=== PATIENT | female | born 1960 | race Two or more races ===

== ENCOUNTER 2018-09-08 11:53 | Inpatient (IN) | payer OTHER ==
[~2018-09-08] VITALS: Ht 165.1 cm; Wt 77.1 kg
--- NOTE | 2018-09-08 18:00 | NUR ---
MS RN OPENING NOTES PATIENT IS ALERT AND ORIENTED X4. RECEIVED PATIENT IN STABLE CONDITION. IN NO APPARENT DISTRESS. BEDSIDE RAILS ARE UPX2. BED IS LOCKED AND LOWERED. CALL LIGHT IS WITHIN REACH. IV LINE IS INTACT AND PATENT. VITAL SIGNS ARE WNL. WILL CONTINUE TO MONITOR PATIENT.
[2018-09-08] MEDS ORDERED: BISA10SU8 RC (18:06)
[2018-09-08] MEDS ORDERED: AMIN30LI27 PO (18:06)
[2018-09-08] MEDS ORDERED: ATOR40TA PO (18:06)
[2018-09-08] MEDS ORDERED: ENOX40DI SQ (18:06)
[2018-09-08] MEDS ORDERED: ONDA4TAB5 PO (18:06)
[2018-09-08] MEDS ORDERED: ASPI-1169 PO (18:06)
[2018-09-08] MEDS ORDERED: INSU100V3 SQ (18:06)
[2018-09-08] MEDS ORDERED: AMLO10TA7 PO (18:06)
[2018-09-08] MEDS ORDERED: SUCR1ORA PO (18:06)
[2018-09-08] MEDS ORDERED: ZINC220C6 PO (18:06)
[2018-09-08] MEDS ORDERED: POLY17PO4 PO (18:06)
[2018-09-08] MEDS ORDERED: CLOP75TA15 PO (18:06)
[2018-09-08] MEDS ORDERED: BLOO-668 IN (18:06)
[2018-09-08] MEDS ORDERED: INSU100V7 SQ (18:06)
[2018-09-08] MEDS ORDERED: BUPR75TA8 PO (18:06)
[2018-09-08] MEDS ORDERED: LISI40TA4 PO (18:06)
[2018-09-08] MEDS ORDERED: HYDR-4076 PO (18:06)
[2018-09-08] MEDS ORDERED: CARV12.52 PO (18:06)
[2018-09-08] MEDS ORDERED: MULT-447 PO (18:06)
[2018-09-08] MEDS ORDERED: ASCO500T9 PO (18:06)
[2018-09-08] MEDS ORDERED: ACET-868 PO (18:06)
[2018-09-08] MEDS ORDERED: VORI200T4 PO (18:08)
[2018-09-08 18:30] VITALS: BP 132/97
--- NOTE | 2018-09-08 18:30 | NUR ---
NOTIFIED KELL REYNOSO DNP THAT PATIENT HAS ARRIVED TO THE UNIT. ACKNOWLEDGED AND AWAITING ADMISSION ORDERS.
--- NOTE | 2018-09-08 18:45 | NUR ---
MS RN CLOSING NOTES PATIENT IS IN STABLE CONDITION. IN NO APPARENT DISTRESS. BEDSIDE RAILS ARE UPX2. BED IS LOCKED AND LOWERED. CALL LIGHT IS WITHIN REACH. IV LINE IS INTACT AND PATENT. ALL NEEDS WERE MET. WILL ENDORSE CARE TO RESTRICTIVE PREPARATION OPERATOR NURSE FOR FADY.
--- NOTE | 2018-09-08 19:20 | NUR ---
MS/RN NOTES REMINDED KELL BERMUDEZ DNP REGARDING ADMITTING ORDERS.
--- NOTE | 2018-09-08 19:30 | NUR ---
MS/RN OPENING NOTES PT RECEIVED AWAKE, RESTING COMFORTABLY IN BED. HOB ELEVATED. GREENLANDIC SPEAKING, A/OX4. ON ROOM AIR, BREATHING EVEN AND UNLABORED. DENIES SOB AND PAIN AT THIS TIME. HEVER PICC PATENT AND INTACT. CORBIN IN PLACE AND DRAINING TO GRAVITY. AWAITING ADMITTING ORDERS. LEFT FOOT DRESSING WRAPPED WITH PRADIP BANDAGE C/D/I. PER PT, SHE STATES THAT HER FOOT WAS CLEANED OF OLD TISSUE AND NEW SKIN PLACED. UNABLE TO DETERMINE DONOR SITE. ALSO STATES THAT THE DRESSING HASNT BEEN CHANGED IN 15 DAYS. BED IN LOW/LOCKED POSITION WITH CALL LIGHT IN REACH, BILATERAL UPPER SIDE RAILS IN PLACE. WILL CONTINUE TO MONITOR
[2018-09-08 20:00] VITALS: BP 159/77
[2018-09-08 20:28] VITALS: BP 159/77
[2018-09-08] MEDS ORDERED: IV NS 0.9% 1,000 ML IV PRN (20:51)
[2018-09-08] MEDS ORDERED: Z GUARD REMEDY 2 OZ OINT TP PRN (21:00)
[2018-09-08] MEDS ORDERED: PIPERACILLIN /TAZOBACTAM 3.375 G in IV D5W 50 ML IV ONE (21:00)
[2018-09-08] MEDS ORDERED: DEXTROSE 50%-WATER 50 ML DISP.SYRIN IV PRN (21:00)
[2018-09-08] MEDS: INSULIN REGULAR, HUMAN 100 UNIT/ML 3 ML VIAL SQ PRN (21:23)
[2018-09-08] MEDS: BLOOD SUGAR DIAGNOSTIC 1 EACH STRIP IN SCH (21:23)
[2018-09-08] MEDS: ATORVASTATIN 40 MG TABLET PO SCH (22:14)
[2018-09-08] MEDS: MORPHINE SULFATE INJ 2 MG/ML DISP.SYRIN IV PRN (22:14)
[2018-09-08] MEDS: SUCRALFATE 1 G/10 ML UDC PO SCH (22:14)
[2018-09-08] MEDS: INSULIN GLARGINE, 100 UNIT/ML CARTRIDGE SQ SCH (22:22)
[2018-09-08] MEDS: ALBUTEROL FS 2.5 MG/0.5 ML VIAL.NEB NEB SCH (23:07)
[2018-09-08] MEDS: IPRATROPIUM NEB FS 0.5 MG/2.5 ML AMPUL.NEB NEB SCH (23:07)
--- NOTE | 2018-09-09 01:21 | NUR ---
MS/RN NOTES RANDI ALICIA NOTIFIED OF PT DESATURATING TO 64% POST ADMINISTRATION OF MORPHINE. HOB ELEVATED, PLACED ON NON REBREATHER SATTING 94%-95%. BEGINNING OF SHIFT PT WAS SATTING 95% ON ROOM AIR. WITH ORDERS FOR ABG AND UPGRADE TO TELE. RT MADE AWARE. PT AROUSABLE TO NAME. ALERTX3. ORDERS NOTED AND CARRIED OUT.
[2018-09-09 01:24] LABS: ABG BASE EXCESS -0.6 mmol/L; ABG OXYGEN SATURATION 94.4 % (92.0-98.5); ABG PCO2 43.7 mmHg (35.0-45.0); ABG PH 7.371 (7.350-7.450); ABG PO2 80.3 mmHg (75.0-100.0); COHb 0.3 % (0.5-1.5); MetHb 0.7 % (0.0-1.5); O2Hb 93.5 % (94.0-97.0); SITE, ABG Right Radial; VENT MODE, BG NONREBREATHER
--- NOTE | 2018-09-09 02:34 | NUR ---
MS/RN NOTES RANDI ALICIA AT BEDSIDE TO ASSESS PT AND REVIEW CHART
--- NOTE | 2018-09-09 02:50 | NUR ---
POST ABG RESULTS PATINT WAS LEFT ON NONREBREATHER DUE TO LOW PO2 OF 80. SPOKE TO RN AND MARAL BRYAN WAS NOTIFIED AND CHECKED ON THE PATIENT. MARAL BRYAN SUGGESTED LASIX AND SAID TO TITRATE WHEN LASIX IS DONE. RN IS NOTIFIED.
[2018-09-09] MEDS ORDERED: FUROSEMIDE 20 MG/2 ML VIAL IV SCH (03:00)
[2018-09-09 03:41] LABS: BASOPHILS % (AUTO) 0.6 % (0.0-2.0); EOSINOPHILS % (AUTO) 2.7 % (0.0-6.0); HEMATOCRIT 29 % (33-45); HEMOGLOBIN 9.4 g/dL (11.5-14.8); LYMPHOCYTES # (AUTO) 1.2 /CMM (0.8-4.8); LYMPHOCYTES % (AUTO) 19.6 % (20.0-44.0); MEAN CORPUSCULAR HGB CONC 33 g/dl (31.0-36.0); MEAN CORPUSCULAR VOLUME 86 fL (82-100); MONOCYTES # (AUTO) 0.4 /CMM (0.1-1.30); MONOCYTES % (AUTO) 6.7 % (2.0-12.0); NEUTROPHILS # (AUTO) 4.2 /CMM (1.8-8.9); NEUTROPHILS % (AUTO) 70.4 % (43.0-81.0); PLATELET COUNT (AUTO) 191 /CMM (150-450); RED BLOOD CELL COUNT(AUTO) 3.31 MIL/uL (4.0-5.2)
[2018-09-09 03:57] LABS: ALBUMIN 2.2 g/dL (3.4-5.0); BILIRUBIN,TOTAL 0.2 mg/dL (0.2-1.0); CALCIUM, SERUM 8.5 mg/dL (8.5-10.1); CREATININE 1.3 mg/dL (0.6-1.3); MAGNESIUM 2.1 mg/dL (1.8-2.4); PHOSPHORUS 4.1 mg/dL (2.5-4.9); POTASSIUM 4.3 mmol/L (3.5-5.1)
[2018-09-09 04:05] LABS: THYROID STIMULATING HORMONE 4.626 uIU/mL (0.358-3.74)
[2018-09-09 04:30] VITALS: BP 162/82
[2018-09-09] MEDS: SUCRALFATE 1 G/10 ML UDC PO SCH ×4 (06:44→21:33)
[2018-09-09] MEDS: BLOOD SUGAR DIAGNOSTIC 1 EACH STRIP IN SCH ×4 (06:44→21:33)
[2018-09-09 07:35] LABS: APPEARANCE,URINE CLEAR (CLEAR); BILIRUBIN,URINE NEGATIVE (NEGATIVE); BLOOD, URINE 2+ Ery/uL (NEGATIVE); COLOR,URINE YELLOW (YELLOW); KETONES,URINE NEGATIVE (NEGATIVE); LEUKOCYTE ESTERASE ,URINE 2+ (NEGATIVE); NITRITE, URINE NEGATIVE (NEGATIVE); PROTEIN,URINE 1+ mg/dl (NEGATIVE); UGLUCOSE NEGATIVE (NEGATIVE); UROBILINOGEN,URINE 0.2 EU/dL (0.2)
--- NOTE | 2018-09-09 07:40 | NUR ---
MS/RN CLOSING NOTES PT AWAKE, A./OX3. CZECH SPEAKING. ON 10L SIMPLE MASK SATTING 95%. UNABLE TO TOLERATED TITRATION DURING SHIFT. HOB ELEVATED FOR OPTIMAL LUNG EXPANSION. HEVER PICC LINE IN PLACE. IV DC'D BY COIL WINDERMARAL. CORBIN IN PLACE AND DRAINING TO GRAVITY. DRESSING TO LEFT FOOT C/D/I WITH PRADIP BANDAGE IN PLACE. AWAITING WOUND/PODIATRY CONSULT. KEPT PT COMFORTABLE. ALL NEEDS MET. BED REMAINS IN LOW/LOCKED POSITION WITH CALL LIGHT IN REACH. ENDORSED TO DAY SHIFT RN FADY.
--- NOTE | 2018-09-09 07:50 | NUR ---
HYDROELECTRIC PLANT MECHANICAL ENGINEER OPENING NOTES RECEIVED PATIENT IN STABLE CONDITION. IN NO APPARENT DISTRESS. BEDSIDE RAILS ARE UPX2. BED IS LOCKED AND LOWERED. CALL LIGHT IS WITHIN REACH. IV LINE IS INTACT AND PATENT. WILL CONTINUE TO MONITOR PATIENT.
[2018-09-09] MEDS: IPRATROPIUM NEB FS 0.5 MG/2.5 ML AMPUL.NEB NEB SCH ×4 (07:56→19:40)
[2018-09-09] MEDS: ALBUTEROL FS 2.5 MG/0.5 ML VIAL.NEB NEB SCH ×4 (07:56→19:40)
[2018-09-09 08:04] VITALS: BP 156/76
[2018-09-09] MEDS: POLYETHYLENE GLYCOL 3350 17 GM POWD.PACK PO SCH ×2 (08:22→17:03)
[2018-09-09] MEDS: hydrALAZINE HCL 25 MG TABLET PO SCH ×3 (08:23→17:04)
[2018-09-09] MEDS: ASPIRIN 81 MG TAB.CHEW PO SCH (08:23)
[2018-09-09] MEDS: CLOPIDOGREL BISULFATE 75 MG TABLET PO SCH (08:23)
[2018-09-09] MEDS: buPROPion 75 MG TABLET PO SCH ×2 (08:23→17:03)
[2018-09-09] MEDS: ZINC SULFATE 220 MG CAPSULE PO SCH (08:23)
[2018-09-09] MEDS: LISINOPRIL (20MG) 20 MG TABLET PO SCH (08:23)
[2018-09-09] MEDS: ASCORBIC ACID 500 MG TABLET PO SCH (08:24)
[2018-09-09] MEDS: AMLODIPINE BESYLATE 10 MG TABLET PO SCH (08:24)
[2018-09-09] MEDS: CARVEDILOL 12.5 MG TABLET PO SCH ×2 (08:24→17:04)
[2018-09-09] MEDS: ENOXAPARIN SODIUM 40 MG/0.4 ML DISP.SYRIN SQ SCH (08:28)
[2018-09-09] MEDS: PIPERACILLIN /TAZOBACTAM 3.375 G in IV D5W 100 ML IV SCH ×2 (08:34→17:01)
[2018-09-09 08:50] LABS: BACTERIA,URINE 1+ /HPF (None Seen); SQUAMOUS EPITHELIAL CELL,UR Few /HPF (None Seen); YEAST,URINE Moderate /HPF (None Seen)
[2018-09-09] MEDS: VORICONAZOLE 200 MG TABLET PO SCH ×2 (09:47→17:03)
--- NOTE | 2018-09-09 10:54 | NUR ---
WOUND CARE CONSULT: PT PRESENTS WITH LEFT FOOT SURGICAL WOUNDS (SKIN GRAFTS WITH LUIS TO FOOT AND HEEL), PRESENT ON ADMISSION. DEFER TO DPM (DR HERRERA) FOR FOOT. PT ABLE TO ASSIST WITH TURNING AND REPOSITIONING IN BED. BLANCHABLE REDNESS NOTED TO BUTTOCKS. EMERALD JAMES NOTED. WILL SEE PRN. CURRENT NOELLE SCORE IS 14. Addendum: 09/09/18 at 1101 by POLI LOU WNDNU Amended: Links added.
[2018-09-09 16:09] VITALS: BP 144/75
--- NOTE | 2018-09-09 18:46 | NUR ---
MS RN CLOSING NOTES PATIENT IS IN STABLE CONDITION. IN NO APPARENT DISTRESS. BEDSIDE RAILS ARE UPX2. BED IS LOCKED AND LOWERED. CALL LIGHT IS WITHIN REACH. IV LINE IS INTACT AND PATENT. ALL NEEDS WERE MET. WILL ENDORSE CARE TO SEALING MACHINE OPERATOR NURSE FOR FADY.
[2018-09-09 20:00] VITALS: BP 141/71
--- NOTE | 2018-09-09 20:08 | NUR ---
MS/RN OPENING NOTES PT RECEIVED AWAKE, SITTING UP IN BREATHING RECEIVING BREATHING TX. A/OX4. YORUBA SPEAKING. BREATHING EVEN AND UNLABORED. DENIES SOB AND PAIN. IV TO HEVER PATENT AND INTACT. CORBIN IN PLACE AND DRAINING TO GRAVITY. DRESSING TO LEFT FOOT C/D/I. LEFT FOOT NWB. REMINDED PT TO OFFLOAD LEFT HEEL. VERBALIZED UNDERSTANDING. BED IN LOW/LOCKED POSITION WITH CALL LIGHT IN REACH, BILATERAL UPPER SIDE RAILS IN PLACE WITH HOB ELEVATED. WILL CONTINUE TO MONITOR
--- NOTE | 2018-09-09 20:14 | NUR ---
KELL BERMUDEZ WITH ORDERS FOR [facility] TO DOSE
[2018-09-09] MEDS ORDERED: FEE PK DOSING 1 MIN EA MC ONE (20:16)
[2018-09-09] MEDS: ATORVASTATIN 40 MG TABLET PO SCH (21:33)
[2018-09-09] MEDS: VANCOMYCIN 1 GM in IV D5W 250 ML IV SCH (21:33)
[2018-09-09] MEDS: INSULIN REGULAR, HUMAN 100 UNIT/ML 3 ML VIAL SQ PRN (21:40)
[2018-09-09] MEDS: INSULIN GLARGINE, 100 UNIT/ML CARTRIDGE SQ SCH (21:41)
[2018-09-10] MEDS: LACTULOSE 10 G/15 ML UDC (PYXIS) PO PRN ×2 (00:36→21:01)
[2018-09-10] MEDS: ACETAMINOPHEN 325 MG TABLET PO PRN (00:36)
--- NOTE | 2018-09-10 00:50 | NUR ---
MS/RN NOTES PT C/O ABDOMINAL DISCOMFORT AND STATES SHE HASNT HAD BM IN 3 DAYS. ADMINISTERED PRN TYLENOL AND LACTULOSE. WILL MONITOR FOR EFFECTIVENESS.
[2018-09-10] MEDS: PIPERACILLIN /TAZOBACTAM 3.375 G in IV D5W 100 ML IV SCH ×3 (01:15→17:03)
[2018-09-10] MEDS: BLOOD SUGAR DIAGNOSTIC 1 EACH STRIP IN SCH ×4 (06:43→21:02)
[2018-09-10] MEDS: SUCRALFATE 1 G/10 ML UDC PO SCH ×4 (06:43→21:02)
[2018-09-10 06:46] LABS: BASOPHILS % (AUTO) 0.4 % (0.0-2.0); EOSINOPHILS % (AUTO) 2.9 % (0.0-6.0); HEMATOCRIT 28 % (33-45); HEMOGLOBIN 9.4 g/dL (11.5-14.8); LYMPHOCYTES # (AUTO) 1.2 /CMM (0.8-4.8); LYMPHOCYTES % (AUTO) 23.1 % (20.0-44.0); MEAN CORPUSCULAR HGB CONC 34 g/dl (31.0-36.0); MEAN CORPUSCULAR VOLUME 86 fL (82-100); MONOCYTES # (AUTO) 0.4 /CMM (0.1-1.30); MONOCYTES % (AUTO) 7.4 % (2.0-12.0); NEUTROPHILS # (AUTO) 3.4 /CMM (1.8-8.9); NEUTROPHILS % (AUTO) 66.2 % (43.0-81.0); PLATELET COUNT (AUTO) 191 /CMM (150-450); RED BLOOD CELL COUNT(AUTO) 3.25 MIL/uL (4.0-5.2); WHITE BLOOD COUNT (AUTO) 5.1 K/uL (4.3-11.0)
[2018-09-10 07:02] LABS: CALCIUM, SERUM 8.5 mg/dL (8.5-10.1); CREATININE 1.4 mg/dL (0.6-1.3); MAGNESIUM 2.1 mg/dL (1.8-2.4); PHOSPHORUS 4.1 mg/dL (2.5-4.9); POTASSIUM 4.2 mmol/L (3.5-5.1)
--- NOTE | 2018-09-10 07:11 | NUR ---
MS/RN CLOSING NOTES PT ASLEEP, OPENS EYES TO NAME. ON 3L O2 VIA NC, BREATHING EVEN AND UNLABORED. DENIES SOB AND PAIN AT THIS TIME. ABDOMINAL DISCOMFORT RESOLVED BUT STILL WITH NO BM POST ADMINISTRATION OF LACTULOSE. CORBIN IN PLACE AND DRAINING TO GRAVITY. DRESSING C/D/I. WITH ORDERS TO ELEVATED ON PILLOW. HEVER PICC PATENT AND INTACT. NO SIGNIFICANT CHANGES OVERNIGHT. ALL NEEDS MET. BED REMAINS IN LOW/LOCKED POSITION WITH CALL LIGHT IN REACH AND BILATERAL UPPER SIDE RAILS IN PLACE. HOB ELEVATED. NO SIGNIFICANT CHANGES OVERNIGHT. ALL NEEDS MET. WILL ENDORSE TO DAY SHIFT RN FADY.
--- NOTE | 2018-09-10 07:32 | NUR ---
MS RN OPENING NOTES PT RECEIVED AWAKE, ALERT AND ORIENTED X4. PORTUGUESE SPEAKING. BREATHING EVEN AND UNLABORED ON 02 NASAL CANNULA AT 3 LPM. DENIES SOB AND PAIN. HEVER PICC LINE PATENT AND INTACT. CORBIN IN PLACE AND DRAINING TO GRAVITY. DRESSING TO LEFT FOOT C/D/I. LEFT FOOT NWB. REMINDED PT TO OFFLOAD LEFT HEEL. VERBALIZED UNDERSTANDING. BED IN LOW/LOCKED POSITION WITH CALL LIGHT IN REACH, BILATERAL UPPER SIDE RAILS IN PLACE WITH HOB ELEVATED. WILL CONTINUE TO MONITOR
[2018-09-10] MEDS: IPRATROPIUM NEB FS 0.5 MG/2.5 ML AMPUL.NEB NEB SCH ×4 (07:48→19:31)
[2018-09-10] MEDS: ALBUTEROL FS 2.5 MG/0.5 ML VIAL.NEB NEB SCH ×4 (07:48→19:31)
[2018-09-10 08:00] VITALS: BP 149/75
[2018-09-10] MEDS: VANCOMYCIN 1 GM in IV D5W 250 ML IV SCH ×2 (08:39→20:30)
[2018-09-10] MEDS: ENOXAPARIN SODIUM 40 MG/0.4 ML DISP.SYRIN SQ SCH (08:47)
[2018-09-10] MEDS: VORICONAZOLE 200 MG TABLET PO SCH ×2 (08:49→17:08)
[2018-09-10] MEDS: buPROPion 75 MG TABLET PO SCH ×2 (08:49→17:06)
[2018-09-10] MEDS: POLYETHYLENE GLYCOL 3350 17 GM POWD.PACK PO SCH ×2 (08:50→17:08)
[2018-09-10] MEDS: ASCORBIC ACID 500 MG TABLET PO SCH (08:50)
[2018-09-10] MEDS: ZINC SULFATE 220 MG CAPSULE PO SCH (08:50)
[2018-09-10] MEDS: ASPIRIN 81 MG TAB.CHEW PO SCH (08:50)
[2018-09-10] MEDS: CLOPIDOGREL BISULFATE 75 MG TABLET PO SCH (08:50)
[2018-09-10] MEDS: hydrALAZINE HCL 25 MG TABLET PO SCH ×3 (08:51→17:07)
[2018-09-10] MEDS: CARVEDILOL 12.5 MG TABLET PO SCH ×2 (08:51→17:07)
[2018-09-10] MEDS: AMLODIPINE BESYLATE 10 MG TABLET PO SCH (08:52)
[2018-09-10] MEDS: LISINOPRIL (20MG) 20 MG TABLET PO SCH (08:52)
[2018-09-10] MEDS: INSULIN REGULAR, HUMAN 100 UNIT/ML 3 ML VIAL SQ PRN ×3 (12:14→21:08)
[2018-09-10 16:00] VITALS: BP 134/65
[2018-09-10] MEDS: LACTOBACILLUS RHAMNOSUS GG 1 EACH CAP.SPRINK PO SCH (17:06)
--- NOTE | 2018-09-10 18:47 | NUR ---
MS RN CLOSING NOTES PT IN BED RESTING AT MODERATE HIGH BACKREST POSITION. A/O X4. SERBIAN SPEAKING. ON 02 VIA N/C @ 3LPM, BREATHING EVEN AND UNLABORED. DRESSING TO LEFT FOOT C/D/I. LEFT FOOT NWB. REMINDED PT TO OFFLOAD LEFT HEEL. VERBALIZED UNDERSTANDING. HEVER PICC LINE PATENT AND INTACT, FLUSHES WELL. CORBIN IN PLACE, PATENT AND DRAINING TO GRAVITY. ALL NEEDS AND CARE PROVIDED WELL. KEPT BED IN LOW/LOCKED POSITION WITH CALL LIGHT IN REACH. BILATERAL UPPER SIDE RAILS IN PLACE. WILL ENDORSE TO MATERNITY FLOOR SUPERVISOR NURSE FOR FADY.
--- NOTE | 2018-09-10 19:10 | NUR ---
MS RN RECEIVE PT IN BED. A/O X 3. RESPIRATIONS EVEN AND UNLABORED, NO SOB NOTED, NO DISTRESS, SAFETY MEASURES IN PLACE. WILL CONTINUE TO MONITOR.
[2018-09-10 20:00] VITALS: BP 133/61
--- NOTE | 2018-09-10 20:31 | NUR ---
HELD [facility]AN DONPB AT 2100 PER PHARMACY .[facility] LEV[facility] TROUGH AT 27 [facility]
[2018-09-10] MEDS: ATORVASTATIN 40 MG TABLET PO SCH (21:01)
[2018-09-10] MEDS: INSULIN GLARGINE, 100 UNIT/ML CARTRIDGE SQ SCH (21:03)
[2018-09-11] MEDS: PIPERACILLIN /TAZOBACTAM 3.375 G in IV D5W 100 ML IV SCH ×3 (00:40→16:58)
[2018-09-11] MEDS: BLOOD SUGAR DIAGNOSTIC 1 EACH STRIP IN SCH ×4 (05:43→21:53)
[2018-09-11] MEDS: INSULIN REGULAR, HUMAN 100 UNIT/ML 3 ML VIAL SQ PRN ×4 (05:44→22:11)
--- NOTE | 2018-09-11 06:14 | NUR ---
MS RN ASLEEP AND EASILY AWAKEN, RESPIRATIONS EVEN AND UNLABORED, GOOD SKIN CARE. NO COMPLAIN OF PAIN. AM CARE PROVIDED. NEEDS ATTENDED AND ANTICIPATED. NURSING CARE RENDERED. KEPT CLEAN AND DRY, COMFORTABLE. SAFETY MEASURES AT ALL TIMES. ENDORSE TO NEXT SHIFT.
[2018-09-11 07:17] LABS: BASOPHILS % (AUTO) 0.5 % (0.0-2.0); EOSINOPHILS % (AUTO) 3.1 % (0.0-6.0); HEMATOCRIT 28 % (33-45); HEMOGLOBIN 9.5 g/dL (11.5-14.8); LYMPHOCYTES # (AUTO) 1.1 /CMM (0.8-4.8); LYMPHOCYTES % (AUTO) 22.2 % (20.0-44.0); MEAN CORPUSCULAR HGB CONC 34 g/dl (31.0-36.0); MEAN CORPUSCULAR VOLUME 86 fL (82-100); MONOCYTES # (AUTO) 0.4 /CMM (0.1-1.30); MONOCYTES % (AUTO) 7.6 % (2.0-12.0); NEUTROPHILS # (AUTO) 3.2 /CMM (1.8-8.9); NEUTROPHILS % (AUTO) 66.6 % (43.0-81.0); PLATELET COUNT (AUTO) 196 /CMM (150-450); RED BLOOD CELL COUNT(AUTO) 3.25 MIL/uL (4.0-5.2); WHITE BLOOD COUNT (AUTO) 4.8 K/uL (4.3-11.0)
[2018-09-11 07:33] LABS: CALCIUM, SERUM 8.4 mg/dL (8.5-10.1); CREATININE 1.4 mg/dL (0.6-1.3); MAGNESIUM 2.2 mg/dL (1.8-2.4); PHOSPHORUS 4.6 mg/dL (2.5-4.9); POTASSIUM 4.2 mmol/L (3.5-5.1)
[2018-09-11 08:00] VITALS: BP 150/71
[2018-09-11] MEDS: IPRATROPIUM NEB FS 0.5 MG/2.5 ML AMPUL.NEB NEB SCH ×4 (08:01→18:50)
[2018-09-11] MEDS: ALBUTEROL FS 2.5 MG/0.5 ML VIAL.NEB NEB SCH ×4 (08:01→18:50)
[2018-09-11] MEDS: SUCRALFATE 1 G/10 ML UDC PO SCH ×4 (08:56→21:54)
[2018-09-11] MEDS: ZINC SULFATE 220 MG CAPSULE PO SCH (08:56)
[2018-09-11] MEDS: POLYETHYLENE GLYCOL 3350 17 GM POWD.PACK PO SCH ×2 (08:56→16:57)
[2018-09-11] MEDS: VORICONAZOLE 200 MG TABLET PO SCH ×2 (08:57→16:56)
[2018-09-11] MEDS: AMLODIPINE BESYLATE 10 MG TABLET PO SCH (08:57)
[2018-09-11] MEDS: hydrALAZINE HCL 25 MG TABLET PO SCH ×3 (08:57→16:58)
[2018-09-11] MEDS: LISINOPRIL (20MG) 20 MG TABLET PO SCH (08:57)
[2018-09-11] MEDS: CARVEDILOL 12.5 MG TABLET PO SCH ×2 (08:58→16:57)
[2018-09-11] MEDS: CLOPIDOGREL BISULFATE 75 MG TABLET PO SCH (08:58)
[2018-09-11] MEDS: buPROPion 75 MG TABLET PO SCH ×2 (08:58→16:56)
[2018-09-11] MEDS: LACTOBACILLUS RHAMNOSUS GG 1 EACH CAP.SPRINK PO SCH ×2 (08:58→16:58)
[2018-09-11] MEDS: ASPIRIN 81 MG TAB.CHEW PO SCH (08:58)
[2018-09-11] MEDS: ASCORBIC ACID 500 MG TABLET PO SCH (08:58)
[2018-09-11] MEDS: ENOXAPARIN SODIUM 40 MG/0.4 ML DISP.SYRIN SQ SCH (08:59)
[2018-09-11] MEDS: DAKINS HALF STRENGTH (0.25%) 480 ML BOTTLE TOP SCH (09:14)
[2018-09-11] MEDS: VANCOMYCIN 1 GM in IV D5W 250 ML IV SCH (09:14)
--- NOTE | 2018-09-11 09:47 | NUR ---
MS RN OPENING NOTE RECEIVED PATIENT IN BED. SLEEPING, EASILY AROUSED WITH VERBAL STIMULI, ORIENTED X4. ON 2L O2 VIA NC, TOLERATING WELL. IN NO APPARENT DISTRESS OR DISCOMFORT AT THIS TIME. RESPIRATIONS EVEN AND UNLABORED. DENIES PAIN AND SOB AT THIS TIME. PATIENT IS ABLE TO COMMUNICATE NEEDS, AMHARIC SPEAKING WITH MINIMAL ROMANIAN. CORBIN CATHETER IN PLACE, DRAINING CLEAR YELLOW URINE. RIGHT UPPER ARM PICC LINE, SL, PATENT AND INTACT. LEFT LOWER EXTREMITY ELEVATED ON A PILLOW. KEPT CLEAN AND COMFORTABLE. ALL NEEDS ATTENDED, SAFETY MEASURES IN PLACE, BED IN LOW LOCKED POSITION, SIDE RAILS UP X2, CALL LIGHT WITHIN EASY REACH. WILL CONTINUE TO MONITOR.
[2018-09-11 16:00] VITALS: BP 132/70
--- NOTE | 2018-09-11 17:51 | NUR ---
PATIENT REPORTED THAT SHE HAD NO BOWEL MOVEMENT THE PAST THREE DAYS. PATIENT RECEIVED SCHEDULED/ORDERED LAXATIVES FOR ROMY DAY. BOWEL SOUNDS ARE HYPERACTIVE. FLATULENCE PRESENT PER PATIENT'S REPORT. WILL CONTINUE TO MONITOR AT THIS TIME.
--- NOTE | 2018-09-11 18:15 | NUR ---
MS RN CLOSING NOTE PATIENT IN BED. ALERT ORIENTED X3-4. WITH OCCASIONAL CONFUSION AND FORGETFULNESS, ON 2L O2 VIA NC, TOLERATING WELL. IN NO APPARENT DISTRESS OR DISCOMFORT AT THIS TIME. RESPIRATIONS EVEN AND UNLABORED. DENIES PAIN AND SOB AT THIS TIME. PATIENT IS ABLE TO COMMUNICATE NEEDS, YORUBA SPEAKING WITH MINIMAL JAMAICAN. CORBIN CATHETER IN PLACE, DRAINING CLEAR YELLOW URINE. RIGHT UPPER ARM PICC LINE, SL, PATENT AND INTACT. BILATERAL LOWER EXTREMITIES ELEVATED ON A PILLOW. KEPT CLEAN AND COMFORTABLE. ALL NEEDS ATTENDED, ORDERS RENDERED. PATIENT IS INDEPENDENT WITH BED MOBILITY. SAFETY MEASURES IN PLACE, BED IN LOW LOCKED POSITION, SIDE RAILS UP X2, CALL LIGHT WITHIN EASY REACH. WILL ENDORSE TO PM NURSE FOR FADY.
--- NOTE | 2018-09-11 19:30 | NUR ---
RN MS OPENING NOTES RECEIVED PATIENT IN BED AWAKE, ALERT AND ORIENTED X3, VERBALLY RESPONSIVE, ABLE TO MAKE NEEDS KNOWN. BREATHING EVEN AND UNLABORED. ON 2LPM OXYGEN VIA NC. TOLERATING WELL WITH NO SOB NOTED. DENIES AND PAIN OR DISCOMFORT. NO FACIAL GRIMACING. PICC LINE ON RIGHT UPPER ARM INTACT AND PATENT. SKIN DRY AND WARM TO TOUCH. AFEBRILE. PATIENT NOTED WITH CORBIN CATH - INTACT AND DRAINING. ALL OTHER NEEDS ATTENDED TO. SAFETY MEASURES IN PLACE. CALL LIGHT WITHIN REACH. WILL CONTINUE TO MONITOR.
[2018-09-11 20:00] VITALS: BP 139/69
[2018-09-11] MEDS: LACTULOSE 10 G/15 ML UDC (PYXIS) PO PRN (21:21)
[2018-09-11] MEDS: ACETAMINOPHEN 325 MG TABLET PO PRN (21:21)
[2018-09-11] MEDS: ATORVASTATIN 40 MG TABLET PO SCH (21:54)
[2018-09-11] MEDS: INSULIN GLARGINE, 100 UNIT/ML CARTRIDGE SQ SCH (22:00)
[2018-09-11] MEDS ORDERED: NA PHOS,M-B/NA PHOS,DI-BA 1 EA ENEMA RC PRN ×3 (22:00→22:05)
[2018-09-12] MEDS: PIPERACILLIN /TAZOBACTAM 3.375 G in IV D5W 100 ML IV SCH ×3 (00:56→17:31)
[2018-09-12] MEDS: VANCOMYCIN 1 GM in IV D5W 250 ML IV SCH ×2 (04:01→21:10)
[2018-09-12 04:42] LABS: BASOPHILS % (AUTO) 0.3 % (0.0-2.0); HEMATOCRIT 28 % (33-45); HEMOGLOBIN 9.4 g/dL (11.5-14.8); LYMPHOCYTES # (AUTO) 0.9 /CMM (0.8-4.8); LYMPHOCYTES % (AUTO) 18.2 % (20.0-44.0); MEAN CORPUSCULAR HGB CONC 33 g/dl (31.0-36.0); MEAN CORPUSCULAR VOLUME 86 fL (82-100); MONOCYTES # (AUTO) 0.3 /CMM (0.1-1.30); MONOCYTES % (AUTO) 6.5 % (2.0-12.0); NEUTROPHILS # (AUTO) 3.7 /CMM (1.8-8.9); PLATELET COUNT (AUTO) 195 /CMM (150-450); RED BLOOD CELL COUNT(AUTO) 3.28 MIL/uL (4.0-5.2); WHITE BLOOD COUNT (AUTO) 5.1 K/uL (4.3-11.0)
[2018-09-12 04:54] LABS: CALCIUM, SERUM 8.6 mg/dL (8.5-10.1); CREATININE 1.8 mg/dL (0.6-1.3); MAGNESIUM 2.5 mg/dL (1.8-2.4); PHOSPHORUS 4.5 mg/dL (2.5-4.9); POTASSIUM 4.2 mmol/L (3.5-5.1)
[2018-09-12] MEDS: BLOOD SUGAR DIAGNOSTIC 1 EACH STRIP IN SCH ×4 (06:48→21:51)
[2018-09-12] MEDS: INSULIN REGULAR, HUMAN 100 UNIT/ML 3 ML VIAL SQ PRN ×4 (06:48→21:51)
[2018-09-12 06:49] VITALS: BP 148/80
--- NOTE | 2018-09-12 06:57 | NUR ---
RN MS CLOSING NOTES PATIENT RESTING IN BED. NO ACUTE CHANGES THROUGHOUT SHIFT. BREATHING EVEN AND UNLABORED. ON 2-3LPM OXYGEN VIA NC. TOLERATING WELL WITH NO SOB NOTED. DENIES AND PAIN OR DISCOMFORT. NO FACIAL GRIMACING. PICC LINE ON RIGHT UPPER ARM INTACT AND PATENT. SKIN DRY AND WARM TO TOUCH. AFEBRILE. PATIENT WITH CORBIN CATH - INTACT AND DRAINING. HAD 2 SMALL BOWELS SINCE ADMINISTRATION OF FLEET ENEMA. ANTICIPATING SURGERY THIS AM. CHECKLIST DONE. ALL OTHER NEEDS ATTENDED TO. SAFETY MEASURES IN PLACE. CALL LIGHT WITHIN REACH. WILL ENDORSE TO ONCOMING NURSE FOR FADY.
--- NOTE | 2018-09-12 07:00 | NUR ---
PATIENT IS NOT IN THE UNIT. CURRENTLY IN THE OR FOR A SURGERY.
--- NOTE | 2018-09-12 07:09 | NUR ---
RN MS NOTES PATIENT LEFT FOR SURGERY IN STABLE CONDITION.
[2018-09-12] MEDS ORDERED: BUPIVACAINE MPF 0.5% W/EPI INJ 30 ML VIAL ONE (07:19)
[2018-09-12] MEDS ORDERED: BUPIVACAINE 0.5 % PF 150 MG/30 ML VIAL ONE (07:19)
[2018-09-12] MEDS ORDERED: ANESTHESIA TRAY IN PYXIS 1 EA TRAY MC ONE (07:19)
[2018-09-12] MEDS ORDERED: DESFLURANE 240 ML BOTTLE IH ONE (07:19)
[2018-09-12] MEDS ORDERED: LIDOCAINE HCL/PF 1% 30 ML SDV ONE (07:19)
[2018-09-12] MEDS ORDERED: MINERAL OIL 10 ML VIAL MC ONE (07:20)
[2018-09-12] MEDS: ALBUTEROL FS 2.5 MG/0.5 ML VIAL.NEB NEB SCH ×4 (07:35→19:38)
[2018-09-12] MEDS: IPRATROPIUM NEB FS 0.5 MG/2.5 ML AMPUL.NEB NEB SCH ×4 (07:35→19:38)
[2018-09-12] MEDS ORDERED: FENTANYL PF 100MCG/2ML AMPUL ONE (07:37)
[2018-09-12] MEDS ORDERED: MIDAZOLAM HCL 2 MG/2ML VIAL ONE (07:37)
[2018-09-12] MEDS ORDERED: BACITRACIN 50000 UNITS/VIAL ONE (08:22)
[2018-09-12] MEDS ORDERED: BACITRACIN ZINC OINT (15 GM) 15 GM TUBE TP ONE (08:37)
[2018-09-12 09:00] VITALS: BP 153/79
[2018-09-12] MEDS: DAKINS HALF STRENGTH (0.25%) 480 ML BOTTLE TOP SCH (09:00)
[2018-09-12 09:30] VITALS: BP 153/79
--- NOTE | 2018-09-12 09:30 | NUR ---
MS RN NOTE PATIENT RETURNED FROM OR IN STABLE CONDITION. ALERT ORIENTED X3. ON 4L O2 VIA NC TOLERATING WELL. IN NO APPARENT DISTRESS OR DISCOMFORT AT THIS TIME. RESPIRATIONS EVEN AND UNLABORED. DENIES PAIN AND SOB. VITAL SIGNS STABLE. PATIENT IS ABLE TO COMMUNICATE NEEDS, [place] SPEAKING WITH MINIMAL UNDERSTANDING OF INDONESIAN. CORBIN CATHETER IN PLACE, DRAINING CLEAR YELLOW URINE. RIGHT UPPER ARM PICC LINE SL, PATENT AND INTACT. PATIENT'S LEFT LOWER EXTREMITY ELEVATED ON PILLOWS. PATIENT KEPT CLEAN AND COMFORTABLE. SAFETY MEASURES IN PLACE, BED IN LOW LOCKED POSITION, SIDE RAILS UP X2, CALL LIGHT WITHIN EASY REACH. WILL CARRY OUT POST OP ORDERS AND CONTINUE TO MONITOR.
[2018-09-12] MEDS: POLYETHYLENE GLYCOL 3350 17 GM POWD.PACK PO SCH ×2 (10:12→17:27)
[2018-09-12] MEDS: SUCRALFATE 1 G/10 ML UDC PO SCH ×4 (10:13→21:56)
[2018-09-12] MEDS: LACTOBACILLUS RHAMNOSUS GG 1 EACH CAP.SPRINK PO SCH ×2 (10:13→17:27)
[2018-09-12] MEDS: CLOPIDOGREL BISULFATE 75 MG TABLET PO SCH (10:13)
[2018-09-12] MEDS: ASCORBIC ACID 500 MG TABLET PO SCH (10:15)
[2018-09-12] MEDS: CARVEDILOL 12.5 MG TABLET PO SCH ×2 (10:15→17:28)
[2018-09-12] MEDS: AMLODIPINE BESYLATE 10 MG TABLET PO SCH (10:15)
[2018-09-12] MEDS: buPROPion 75 MG TABLET PO SCH ×2 (10:15→17:28)
[2018-09-12] MEDS: hydrALAZINE HCL 25 MG TABLET PO SCH ×3 (10:16→17:28)
[2018-09-12] MEDS: ZINC SULFATE 220 MG CAPSULE PO SCH (10:16)
[2018-09-12] MEDS: LISINOPRIL (20MG) 20 MG TABLET PO SCH (10:16)
[2018-09-12] MEDS: ASPIRIN 81 MG TAB.CHEW PO SCH (10:17)
[2018-09-12] MEDS: ENOXAPARIN SODIUM 40 MG/0.4 ML DISP.SYRIN SQ SCH (10:17)
[2018-09-12 16:00] VITALS: BP 138/74
[2018-09-12] MEDS: ONDANSETRON HCL/PF 4 MG/2 ML VIAL IVP PRN ×2 (18:00→23:58)
[2018-09-12] MEDS: MORPHINE SULFATE INJ 2 MG/ML DISP.SYRIN IV PRN (18:01)
--- NOTE | 2018-09-12 19:30 | NUR ---
RN MS OPENING NOTES RECEIVED PATIENT IN BED AWAKE, ALERT AND ORIENTED X3, VERBALLY RESPONSIVE, ABLE TO MAKE NEEDS KNOWN. WOLOF SPEAKER. BREATHING EVEN AND UNLABORED. ON 3LPM OXYGEN VIA NC. TOLERATING WELL WITH NO SOB NOTED. DENIES AND PAIN OR DISCOMFORT. NO FACIAL GRIMACING. PICC LINE ON RIGHT UPPER ARM INTACT AND PATENT. SKIN DRY AND WARM TO TOUCH. AFEBRILE. PATIENT NOTED WITH CORBIN CATH - INTACT AND DRAINING. DRESSING ON LEFT LEG DRY AND INTACT. ALL OTHER NEEDS ATTENDED TO. SAFETY MEASURES IN PLACE. CALL LIGHT WITHIN REACH. WILL CONTINUE TO MONITOR.
--- NOTE | 2018-09-12 19:43 | NUR ---
MS RN CLOSING NOTE PATIENT IN BED. ALERT ORIENTED X3. ON 4L O2 VIA NC, TOLERATING WELL. IN NO APPARENT DISTRESS OR DISCOMFORT AT THIS TIME. RESPIRATIONS EVEN AND UNLABORED. DENIES PAIN AND SOB AT THIS TIME. PATIENT IS ABLE TO COMMUNICATE NEEDS, LIBERIAN SPEAKING WITH MINIMAL BRITISH [place] ISLANDER. CORBIN CATHETER IN PLACE, DRAINING CLEAR YELLOW URINE. RIGHT UPPER ARM PICC LINE, SL, PATENT AND INTACT. LEFT LOWER EXTREMITIES ELEVATED ON A PILLOWS PER ORDER. KEPT CLEAN AND COMFORTABLE. ALL NEEDS ATTENDED, ORDERS RENDERED. PATIENT IS INDEPENDENT WITH BED MOBILITY. SAFETY MEASURES IN PLACE, BED IN LOW LOCKED POSITION, SIDE RAILS UP X2, CALL LIGHT WITHIN EASY REACH. WILL ENDORSE TO PM NURSE FOR FADY.
[2018-09-12 20:00] VITALS: BP 123/64
[2018-09-12] MEDS: INSULIN GLARGINE, 100 UNIT/ML CARTRIDGE SQ SCH (21:51)
[2018-09-12] MEDS: ATORVASTATIN 40 MG TABLET PO SCH (21:56)
--- NOTE | 2018-09-13 00:05 | NUR ---
RN MS NOTES NOTED PATIENT VOMITING X1. DARK COLORED, BUT NOT BLOOD LIKE. GAVE ZOFRAN IV. WILL CONTINUE TO MONITOR.
[2018-09-13] MEDS: PIPERACILLIN /TAZOBACTAM 3.375 G in IV D5W 100 ML IV SCH ×3 (01:24→16:20)
[2018-09-13 06:23] LABS: BASOPHILS % (AUTO) 0.5 % (0.0-2.0); EOSINOPHILS % (AUTO) 2.7 % (0.0-6.0); HEMATOCRIT 28 % (33-45); HEMOGLOBIN 9.5 g/dL (11.5-14.8); LYMPHOCYTES # (AUTO) 1.1 /CMM (0.8-4.8); LYMPHOCYTES % (AUTO) 20.5 % (20.0-44.0); MEAN CORPUSCULAR HGB CONC 34 g/dl (31.0-36.0); MEAN CORPUSCULAR VOLUME 86 fL (82-100); MONOCYTES # (AUTO) 0.4 /CMM (0.1-1.30); MONOCYTES % (AUTO) 7.2 % (2.0-12.0); NEUTROPHILS # (AUTO) 3.7 /CMM (1.8-8.9); NEUTROPHILS % (AUTO) 69.1 % (43.0-81.0); PLATELET COUNT (AUTO) 205 /CMM (150-450); WHITE BLOOD COUNT (AUTO) 5.4 K/uL (4.3-11.0)
[2018-09-13] MEDS: BLOOD SUGAR DIAGNOSTIC 1 EACH STRIP IN SCH ×4 (06:37→21:18)
[2018-09-13] MEDS: INSULIN REGULAR, HUMAN 100 UNIT/ML 3 ML VIAL SQ PRN (06:37)
[2018-09-13 06:54] LABS: CALCIUM, SERUM 8.7 mg/dL (8.5-10.1); CREATININE 1.6 mg/dL (0.6-1.3); MAGNESIUM 2.4 mg/dL (1.8-2.4); PHOSPHORUS 4.5 mg/dL (2.5-4.9); POTASSIUM 4.2 mmol/L (3.5-5.1)
--- NOTE | 2018-09-13 06:59 | NUR ---
RN MS CLOSING NOTES PATIENT RESTING IN BED. NO ACUTE CHANGES THROUGHOUT SHIFT. BREATHING EVEN AND UNLABORED. ON 3LPM OXYGEN VIA NC. TOLERATING WELL WITH NO SOB NOTED. DENIES AND PAIN OR DISCOMFORT. NO FACIAL GRIMACING. PICC LINE ON RIGHT UPPER ARM INTACT AND PATENT. SKIN DRY AND WARM TO TOUCH. AFEBRILE. PATIENT WITH CORBIN CATH - INTACT AND DRAINING. DRESSING DRY AND INTACT. REINFORCED LEFT UPPER LEG DRESSING DUE TO BREAKTHROUGH OF BLOOD. ALL OTHER NEEDS ATTENDED TO. SAFETY MEASURES IN PLACE. CALL LIGHT WITHIN REACH. WILL ENDORSE TO ONCOMING NURSE FOR FADY.
--- NOTE | 2018-09-13 07:00 | NUR ---
RN MS NOTES NO MORE NAUSEA OR VOMITING SINCE LAST EPISODE. WILL CONTINUE TO MONITOR.
[2018-09-13] MEDS: SUCRALFATE 1 G/10 ML UDC PO SCH ×4 (07:30→21:16)
--- NOTE | 2018-09-13 07:34 | NUR ---
MS RN OPENING NOTES RECEIVED PATIENT IN STABLE CONDITION. IN NO APPARENT DISTRESS. BEDSIDE RAILS ARE UPX2. BED IS LOCKED AND LOWERED. CALL LIGHT IS WITHIN REACH. IV LINE IS INTACT AND PATENT. WILL CONTINUE TO MONITOR PATIENT.
[2018-09-13] MEDS: IPRATROPIUM NEB FS 0.5 MG/2.5 ML AMPUL.NEB NEB SCH ×4 (07:59→19:37)
[2018-09-13] MEDS: ALBUTEROL FS 2.5 MG/0.5 ML VIAL.NEB NEB SCH ×4 (07:59→19:37)
[2018-09-13 08:00] VITALS: BP 153/73
[2018-09-13] MEDS: LISINOPRIL (20MG) 20 MG TABLET PO SCH (08:20)
[2018-09-13] MEDS: ACETAMINOPHEN 325 MG TABLET PO PRN (08:20)
[2018-09-13] MEDS: LACTOBACILLUS RHAMNOSUS GG 1 EACH CAP.SPRINK PO SCH ×2 (08:20→16:21)
[2018-09-13] MEDS: hydrALAZINE HCL 25 MG TABLET PO SCH ×3 (08:20→16:21)
[2018-09-13] MEDS: CLOPIDOGREL BISULFATE 75 MG TABLET PO SCH (08:20)
[2018-09-13] MEDS: CARVEDILOL 12.5 MG TABLET PO SCH ×2 (08:21→16:21)
[2018-09-13] MEDS: ASCORBIC ACID 500 MG TABLET PO SCH (08:21)
[2018-09-13] MEDS: AMLODIPINE BESYLATE 10 MG TABLET PO SCH (08:21)
[2018-09-13] MEDS: buPROPion 75 MG TABLET PO SCH ×2 (08:21→16:23)
[2018-09-13] MEDS: ASPIRIN 81 MG TAB.CHEW PO SCH (08:22)
[2018-09-13] MEDS: ZINC SULFATE 220 MG CAPSULE PO SCH (08:22)
[2018-09-13] MEDS: ONDANSETRON HCL/PF 4 MG/2 ML VIAL IVP PRN (08:26)
[2018-09-13] MEDS: POLYETHYLENE GLYCOL 3350 17 GM POWD.PACK PO SCH ×2 (08:33→16:22)
[2018-09-13] MEDS: DAKINS HALF STRENGTH (0.25%) 480 ML BOTTLE TOP SCH (08:34)
[2018-09-13] MEDS: ENOXAPARIN SODIUM 40 MG/0.4 ML DISP.SYRIN SQ SCH (08:34)
[2018-09-13] MEDS: MORPHINE SULFATE INJ 2 MG/ML DISP.SYRIN IV PRN (14:07)
[2018-09-13] MEDS: VANCOMYCIN 1 GM in IV D5W 250 ML IV SCH (15:00)
--- NOTE | 2018-09-13 15:04 | NUR ---
NON ADMINISTERED VANCOMYCIN. PATIENT'S VANCO THROUGH LEVEL IS 30.
[2018-09-13 16:00] VITALS: BP 130/80
--- NOTE | 2018-09-13 18:15 | NUR ---
MS RN CLOSING NOTES PATIENT IS IN STABLE CONDITION. IN NO APPARENT DISTRESS. BEDSIDE RAILS ARE UPX2. BED IS LOCKED AND LOWERED. CALL LIGHT IS WITHIN REACH. IV LINE IS INTACT AND PATENT. ALL NEEDS WERE MET. WILL ENDORSE CARE TO POSTPARTUM NURSE NURSE FOR FADY.
--- NOTE | 2018-09-13 19:35 | NUR ---
RN MS OPENING NOTES RECEIVED PT IN BED, AWAKE ALERT ORIENTED X4, BREATHING EVEN AND UNLABORED ON 3L 02 NC. NO SOB, COUGH OR CONGESTION. NO COMPLAINT OF PAIN OR DISCOMFORT AT THIS TIME. HEVER PICC LINE IN PLACE PATENT AND FLUSHING. FC IN PLACE AND COLLECTING, URINE APPEARS CLEAR AND YELLOW. LF ELEVATED ON 3 PILLOWS DIRECTED. BED IN LOWEST LOCKED POSITION. CALL LIGHT WITHIN REACH AT ALL TIMES, WILL CONTINUE TO MONITOR.
[2018-09-13 20:00] VITALS: BP_SYST 113; BP_SYST 149; BP_DIAS 50; BP_DIAS 75
[2018-09-13] MEDS: ATORVASTATIN 40 MG TABLET PO SCH (21:16)
[2018-09-13] MEDS: INSULIN GLARGINE, 100 UNIT/ML CARTRIDGE SQ SCH (21:18)
[2018-09-14] MEDS: PIPERACILLIN /TAZOBACTAM 3.375 G in IV D5W 100 ML IV SCH ×2 (01:01→10:47)
[2018-09-14 04:08] VITALS: BP 149/75
[2018-09-14 06:35] LABS: BASOPHILS % (AUTO) 0.4 % (0.0-2.0); EOSINOPHILS % (AUTO) 1.9 % (0.0-6.0); HEMATOCRIT 28 % (33-45); HEMOGLOBIN 9.3 g/dL (11.5-14.8); LYMPHOCYTES % (AUTO) 17.9 % (20.0-44.0); MEAN CORPUSCULAR HGB CONC 34 g/dl (31.0-36.0); MEAN CORPUSCULAR VOLUME 87 fL (82-100); MONOCYTES # (AUTO) 0.4 /CMM (0.1-1.30); MONOCYTES % (AUTO) 7.6 % (2.0-12.0); NEUTROPHILS # (AUTO) 4.2 /CMM (1.8-8.9); NEUTROPHILS % (AUTO) 72.2 % (43.0-81.0); PLATELET COUNT (AUTO) 200 /CMM (150-450); RED BLOOD CELL COUNT(AUTO) 3.21 MIL/uL (4.0-5.2); WHITE BLOOD COUNT (AUTO) 5.9 K/uL (4.3-11.0)
[2018-09-14 06:54] LABS: CALCIUM, SERUM 8.5 mg/dL (8.5-10.1); CREATININE 1.4 mg/dL (0.6-1.3); MAGNESIUM 2.4 mg/dL (1.8-2.4); PHOSPHORUS 4.6 mg/dL (2.5-4.9)
--- NOTE | 2018-09-14 07:00 | NUR ---
RN MS CLOSING NOTES PT IN BED, AWAKE ALERT ORIENTED X4, BREATHING EVEN AND UNLABORED ON 3L 02 NC. NO SOB, COUGH OR CONGESTION. NO COMPLAINT OF PAIN OR DISCOMFORT AT THIS TIME. HEVER PICC LINE IN PLACE PATENT AND FLUSHING. BG OF 67, ORANGE JUICE GIVEN, RE CHECK, 76. FC IN PLACE AND COLLECTING, URINE APPEARS CLEAR AND YELLOW. LF ELEVATED ON 3 PILLOWS DIRECTED. BED IN LOWEST LOCKED POSITION. CALL LIGHT WITHIN REACH AT ALL TIMES, WILL ENDORSE TO DAY NURSE FOR FADY
--- NOTE | 2018-09-14 07:30 | NUR ---
MS AUDELIA Opening Notes Patient asleep, resting in bed. Semi-Fowlers position. Alert and oriented x4, able to make needs known. Kyrgyz-speaking. No complaints of pain at this time. Respirations even and unlabored on 2 L oxygen via nasal cannula, no acute distress noted. PICC line to the right upper arm, intact, patent with blood return and saline locked. Ng catheter in place, intact, patent and draining yellow urine. Left lower extremity elevated on 3 pillows as ordered. Dressing to site, clean, dry and intact with no bleeding noted. Updated patient on current plan of care and safety measures. Safety and fall precautions in place: bed in lowest and locked position, side rails up x2, bed alarm on, call light and personal possessions within reach. Will continue to monitor and intervene as needed. Addendum: 09/14/18 at 1832 by FARZAD ORELLANA RN Correction: Midline to the right upper arm, intact, patent with blood return and saline locked.
[2018-09-14 08:00] VITALS: BP 159/79
[2018-09-14] MEDS: IPRATROPIUM NEB FS 0.5 MG/2.5 ML AMPUL.NEB NEB SCH ×4 (08:16→19:43)
[2018-09-14] MEDS: ALBUTEROL FS 2.5 MG/0.5 ML VIAL.NEB NEB SCH ×4 (08:16→19:43)
[2018-09-14] MEDS: BLOOD SUGAR DIAGNOSTIC 1 EACH STRIP IN SCH ×4 (08:27→22:16)
[2018-09-14] MEDS: ZINC SULFATE 220 MG CAPSULE PO SCH (08:28)
[2018-09-14] MEDS: POLYETHYLENE GLYCOL 3350 17 GM POWD.PACK PO SCH ×2 (08:28→16:26)
[2018-09-14] MEDS: SUCRALFATE 1 G/10 ML UDC PO SCH ×4 (08:28→21:39)
[2018-09-14] MEDS: ASCORBIC ACID 500 MG TABLET PO SCH (08:29)
[2018-09-14] MEDS: LISINOPRIL (20MG) 20 MG TABLET PO SCH (08:29)
[2018-09-14] MEDS: hydrALAZINE HCL 25 MG TABLET PO SCH ×3 (08:29→17:08)
[2018-09-14] MEDS: AMLODIPINE BESYLATE 10 MG TABLET PO SCH (08:29)
[2018-09-14] MEDS: LACTOBACILLUS RHAMNOSUS GG 1 EACH CAP.SPRINK PO SCH ×2 (08:29→17:08)
[2018-09-14] MEDS: buPROPion 75 MG TABLET PO SCH ×2 (08:30→17:10)
[2018-09-14] MEDS: CARVEDILOL 12.5 MG TABLET PO SCH ×2 (08:30→17:08)
[2018-09-14] MEDS: ASPIRIN 81 MG TAB.CHEW PO SCH (08:30)
[2018-09-14] MEDS: CLOPIDOGREL BISULFATE 75 MG TABLET PO SCH (08:30)
[2018-09-14] MEDS: ENOXAPARIN SODIUM 40 MG/0.4 ML DISP.SYRIN SQ SCH (08:40)
[2018-09-14] MEDS: DAKINS HALF STRENGTH (0.25%) 480 ML BOTTLE TOP SCH (08:41)
--- NOTE | 2018-09-14 11:15 | NUR ---
Removed ayala catheter as ordered per Dr. Lockett. Anticipation of transfer back to facility. 600 mL of output upon removal. Patient states she is normally incontinent of urine, adult brief placed. Voiding trial to begin. Will continue to monitor.
[2018-09-14] MEDS ORDERED: BISACODYL SUPP (10 MG) 10 MG/SUPP.RECT SUPP.RECT RC PRN (14:00)
[2018-09-14] MEDS ORDERED: CEFEPIME 2 GM in IV D5W 100 ML IV SCH ×2 (16:00→17:00)
[2018-09-14 16:04] VITALS: BP 153/69
--- NOTE | 2018-09-14 17:00 | NUR ---
Paged MD regarding pharmacy update on discharge antibiotics for infection. MD stated he would update discharge medication orders at this time.
[2018-09-14] MEDS: INSULIN REGULAR, HUMAN 100 UNIT/ML 3 ML VIAL SQ PRN (18:00)
--- NOTE | 2018-09-14 18:32 | NUR ---
MS RN Closing Notes Patient asleep, resting in bed. Semi-Fowlers position. Alert and oriented x4, able to make needs known. [place]-speaking. No complaints of pain at this time. Respirations even and unlabored on 2 L oxygen via nasal cannula, no acute distress noted. Midline to the right upper arm, intact, patent with blood return and saline locked. Left lower extremity elevated on 3 pillows as ordered. Dressing to site, clean, dry and intact with no bleeding noted. Updated patient on current plan of care and safety measures. Safety and fall precautions in place: bed in lowest and locked position, side rails up x2, bed alarm on, call light and personal possessions within reach. Called report to AUDELIA Melgoza at [facility], pending updates only. Pending discharge to SNF after bowel movement, several non-pharmacologic and pharmacologic measures initiated and implemented. Will endorse care to pecan picker RN.
--- NOTE | 2018-09-14 20:02 | NUR ---
RN MS OPENING NOTES RECEIVED PT IN BED, AWAKE ALERT ORIENTED X4, BREATHING EVEN AND UNLABORED ON 3L 02 NC. NO SOB, COUGH OR CONGESTION. NO COMPLAINT OF PAIN OR DISCOMFORT AT THIS TIME. HEVER PICC LINE IN PLACE PATENT AND FLUSHING. LF ELEVATED ON 3 PILLOWS DIRECTED. BED IN LOWEST LOCKED POSITION. CALL LIGHT WITHIN REACH AT ALL TIMES, WILL CONTINUE TO MONITOR. AWAITING DISCHARGE PENDING BOWEL MOVEMENT.
[2018-09-14 20:30] VITALS: BP 139/69
[2018-09-14] MEDS ORDERED: VANCOMYCIN 1 GM in IV D5W 250 ML IV SCH (21:00)
[2018-09-14] MEDS: ATORVASTATIN 40 MG TABLET PO SCH (21:39)
[2018-09-14] MEDS: INSULIN GLARGINE, 100 UNIT/ML CARTRIDGE SQ SCH (21:42)
--- NOTE | 2018-09-14 22:50 | NUR ---
RN MS DISCHARGE NOTES PT REPORT GIVEN TO RN DRY CELL BATTERY ASSEMBLER AT [facility]. AMBULANCE PICKED UP PT IN BED AT 2240. PT IN STABLE CONDITION, BREATHING EVEN AND UNLABORED ON O23L NC. NO COMPLAINT OF PAIN OR DISCOMFORT AT THIS TIME. DRESSINGS IN PLACE ON LEFT FOOT AND LEFT HIP. HEVER MIDLINE IN PLACE. BELONGINGS LIST SIGNED FOR.
== END 2018-09-14 22:45 | DRG 312 ==
LOC: MED 17:42 → TELE 09-09 01:14 → MED 09-09 08:14
PROVIDERS: ADMIT Nurse Practitioner Acute Care; ATTEND Internal Medicine
PROC: 0HRNX74 Replacement of Left Foot Skin with Autologous Tissue Substitute, Partial Thickness, External Approach (ICD-10-PCS; principal; 2018-09-12)
DX: E11.69 Type 2 diabetes mellitus with other specified complication (principal); M86.172 Other acute osteomyelitis, left ankle and foot; J96.01 Acute respiratory failure with hypoxia; N17.0 Acute kidney failure with tubular necrosis; J90 Pleural effusion, not elsewhere classified; I50.33 Acute on chronic diastolic (congestive) heart failure; E11.621 Type 2 diabetes mellitus with foot ulcer; D68.59 Other primary thrombophilia; E11.42 Type 2 diabetes mellitus with diabetic polyneuropathy; I11.0 Hypertensive heart disease with heart failure; L97.529 Non-pressure chronic ulcer of other part of left foot with unspecified severity; E44.1 Mild protein-calorie malnutrition; E87.0 Hyperosmolality and hypernatremia; L89.90 Pressure ulcer of unspecified site, unspecified stage; N39.0 Urinary tract infection, site not specified; E78.5 Hyperlipidemia, unspecified; J45.909 Unspecified asthma, uncomplicated; D64.9 Anemia, unspecified; R16.2 Hepatomegaly with splenomegaly, not elsewhere classified; K76.0 Fatty (change of) liver, not elsewhere classified; E88.09 Other disorders of plasma-protein metabolism, not elsewhere classified; Z68.28 Body mass index [BMI] 28.0-28.9, adult; Z79.84 Long term (current) use of oral hypoglycemic drugs; E87.8 Other disorders of electrolyte and fluid balance, not elsewhere classified; Z79.4 Long term (current) use of insulin
CPT/HCPCS: 36415; 36600; 71045-TC; 73630-TC; 74018; 76604-TC; 80048-TC; 80053-TC; 80061-TC; 80202-TC; 81000-TC; 82803-TC; 82962-TC; 83540-TC; 83690-TC; 83735-TC; 84100-TC; 84439-TC; 84443-TC; 84481; 84484-TC; 85025-TC; 85610-TC; 85730-TC; 86850-TC; 87070-TC; 87081-TC; 87086-TC; 87186-TC; 87340; 87806; 93307-TC; 94799-TC; A4217; A6253; A6402; G0378; J0692; J1650; J1815; J1940; J2250; J2270; J2405; J2543; J2704; J3010; J3370; J3490; J7030; J7060